=== PATIENT | female | born 1970 | race Caucasian/White ===

== ENCOUNTER 2022-02-18 07:01 | Day surgery (SDC) | payer BC ==
[~2022-02-18 07:01] MED LIST: Lactated Ringers 1,000 ML IV SCH; Sodium Chloride 0.9% 10 ML Syringe FLUSH PRN
[2022-02-18] MEDS ORDERED: Midazolam 1 MG/ML 2 ML SDV IV ONE (07:02)
[2022-02-18] MEDS ORDERED: Propofol 200 MG/20 ML SDV IV ONE (07:02)
[2022-02-18] MEDS ORDERED: Lidocaine 2% 5 ML SDV INJECT ONE (07:02)
[2022-02-18 09:23] VITALS: BP 142/88; PULSE 67
== END 2022-02-18 09:17 | disposition home or self-care (01) ==
LOC: FB.SDS 07:01
PROVIDERS: ATTEND Surgery
DX: K29.30 Chronic superficial gastritis without bleeding (principal); K21.00 Gastro-esophageal reflux disease with esophagitis, without bleeding; Z79.899 Other long term (current) drug therapy; Z90.49 Acquired absence of other specified parts of digestive tract; Z98.890 Other specified postprocedural states
CPT/HCPCS: 00731; 43239; 81025; 88300; 88305; 88342; J2250; J2704; J7120